=== PATIENT | male | born 1970 | race Caucasian/White ===

== ENCOUNTER → 2021-07-12 13:22 | Outpatient (BNVA) | payer OTHER, SELFPAY | PROVIDERS: PCP Internal Medicine Pulmonary Disease; Visit Provider Internal Medicine | DX: S16.1XXA Strain of muscle, fascia and tendon at neck level, initial encounter (principal); S00.81XA Abrasion of other part of head, initial encounter; W20.8XXA Other cause of strike by thrown, projected or falling object, initial encounter | CPT/HCPCS: 70450; 72040; 99203 ==

== ENCOUNTER → 2021-07-15 14:03 | Outpatient (BNVA) | payer OTHER, SELFPAY | PROVIDERS: PCP Internal Medicine Pulmonary Disease; Visit Provider Internal Medicine | DX: S16.1XXA Strain of muscle, fascia and tendon at neck level, initial encounter (principal); R42 Dizziness and giddiness; X58.XXXA Exposure to other specified factors, initial encounter | CPT/HCPCS: 99213 ==

== ENCOUNTER → 2021-07-22 15:08 | Outpatient (BNVA) | payer OTHER, SELFPAY | PROVIDERS: PCP Internal Medicine Pulmonary Disease; Visit Provider Internal Medicine | DX: S09.11XA Strain of muscle and tendon of head, initial encounter (principal); S16.1XXA Strain of muscle, fascia and tendon at neck level, initial encounter; X50.3XXA Overexertion from repetitive movements, initial encounter | CPT/HCPCS: 99213 ==

== ENCOUNTER → 2022-03-27 09:31 | Outpatient (BNVA) | payer OTHER, SELFPAY | PROVIDERS: PCP Internal Medicine Pulmonary Disease; Visit Provider Internal Medicine | DX: M25.811 Other specified joint disorders, right shoulder (principal) | CPT/HCPCS: 73030; 99203 ==

== ENCOUNTER → 2022-04-10 09:50 | Outpatient (BNVA) | payer OTHER, SELFPAY | PROVIDERS: PCP Nurse Practitioner Family; Visit Provider Physician Assistant Medical | DX: M75.42 Impingement syndrome of left shoulder (principal) | CPT/HCPCS: 99213 ==

== ENCOUNTER 2022-04-22 19:33 | Outpatient (REF) | payer OTHER, SELFPAY ==
--- NOTE | ~2022-04-22 | MR_ITS ---
EXAMINATION: MRI SHOULDER WITHOUT CONTRAST, LEFT CLINICAL INFORMATION: Left shoulder pain and limited range of motion. Injury on 03/25/2022. COMPARISON: Left shoulder radiographs dated 03/27/2022. TECHNIQUE: Multisequence MR imaging of the left shoulder was obtained without contrast on a high-field strength scanner. FINDINGS: ROTATOR CUFF: Linear fluid signal extending into the bursal surface and intrasubstance of the anterior supraspinatus tendon measuring approximately 1.6 x 0.9 cm (AP x ML). Additional linear intrasubstance fluid signal extending into the posterior tendon fibers measuring 0.9 cm in AP dimension. Mild adjacent soft tissue edema. Mild subscapularis tendinosis. No full-thickness rotator cuff tendon tear. No muscle atrophy or fatty infiltration. BICEPS: Intact. CORACOACROMIAL ARCH: The undersurface of the acromion is curved with tiny subacromial spurs. Mild acromioclavicular osteoarthritis. Fluid and edema within the subacromial-subdeltoid bursa, consistent with mild bursitis. LABRUM/CAPSULE: No displaced labral tear. Intact joint capsule. GLENOHUMERAL JOINT/MARROW: Unremarkable. MR/MR shoulder LT wo con IMPRESSION: 1. Anterior bursal surface partial tearing of the supraspinatus tendon measuring 1.6 x 0.9 cm (AP x ML) with an additional linear intrasubstance partial tearing extending into the posterior tendon fibers. Mild subscapularis tendinosis. 2. Mild acromioclavicular osteoarthritis with tiny subacromial spurs. 3. Mild subacromial-subdeltoid bursitis.
== END 2022-04-22 19:34 | disposition home or self-care (01) ==
LOC: HO.MRI 19:33
PROVIDERS: PCP Nurse Practitioner Family; Visit Provider Physician Assistant Medical
DX: M24.812 Other specific joint derangements of left shoulder, not elsewhere classified (principal)
CPT/HCPCS: 73221

== ENCOUNTER → 2022-04-28 09:42 | Outpatient (BNVA) | payer OTHER, SELFPAY | PROVIDERS: PCP Nurse Practitioner Family; Visit Provider Physician Assistant Medical | DX: M75.112 Incomplete rotator cuff tear or rupture of left shoulder, not specified as traumatic (principal) | CPT/HCPCS: 99213 ==

== ENCOUNTER 2022-05-08 13:00 | Outpatient (RCR) | payer OTHER, SELFPAY ==
--- NOTE | 2022-03-28 15:32 | MHC.PT.EP ---
[facility] [place] [facility] [place] [facility] [address] William Hilton [address] [phone] F: [phone] F: [phone] F: [phone] F: [phone] Physical Therapy Plan of Care Date of Evaluation: Date of Surgery: Diagnosis: This is a 52 yo male presenting to skilled PT with a script for L RTC injury (RHD) Assessment: This is a 52 yo male presenting to skilled PT with a script for L RTC injury. Patient was at work on Saturday 03/24 when he was lifting containers and he felt a pop. He had some pain but this increased more a little while later when he went to point at something for a co-worker. Thursday he rested and Thursday he went back into work but had pain still so he went to work connection. He had an x-ray which was negative and he was given naproxen. Pain and ROM has been improving gradually as of today. Pain is located anterior/superior and into pec muscle. Pain is sharp. Pain increases with lifting, reaching, pushing and pulling. He continues to be I with ADLs as well as driving. Denies radiating symptoms. He reports cervical pain at baseline, no increase since the incident at work. Also of note, in 2004 he had shoulder surgery, RTC repair but this was on the R. He returns to work connection on 04/10. 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 Assessment reveals pain that ranges up to a 6/10. He demos decreased B shoulder ROM (L worse in standing and sitting), decreased L shoulder and scapular strength, impaired cervical and shoulder posture at rest, impaired shoulder and thoracic joint mobility which is more hypo but less painful as well as gross functional decline with ADLs, lifting, and hobbies (enjoys hunting). He is a good candidate for skilled PT 2x/wk for 4 wks to address impairments, implement HEP and optimize functional mobility Frequency and Duration: The patient will be seen 2x/wk for 4 wk Short Term Goals: I in HEP Demo proper scapular stab and posture with ther-ex, no PT cuing Improve AROM by at least 10 degs without pain Assisted Goals: Demo normal cervical AROM without pain Improve pain to no more than 2/10 at the worst Improve SPADI by 10 points Demo at least 4+/5 scapular and shoulder strength Perform motions for hunting with a bow without increase in pain or compensation Treatment Plan: Modalities to reduce pain, spasms and effusion. Manual therapy to restore motion and function. Therapeutic exercise to improve strength and flexibility. Neuromuscular re-education for posture and balance. Therapeutic activities to return to functional activities of daily living. Electronically signed by: Merary Emanuel PT Please sign and return to therapist. Thank you for your referral.
--- NOTE | 2022-09-18 10:17 | MHC.PT.DC ---
[facility] [place] Office [place] Office [place] Office [address] William Hilton [address] [phone] F: [phone] F: [phone] F: [phone] F: [phone] Physical Therapy Discharge Report Diagnosis: This is a 52 yo male presenting to skilled PT with a script for L RTC injury (RHD) Date of Surgery: Date of Evaluation: 03/28/22 Date of Discharge: 09/18/22 Treatments to Date: 10 Cancellations to Date: 0 No Shows to Date: 0 Discharge Status: Improved Function Independent with HEP Patient Elected to Stop Recommend MD Follow-up Discharge Summary: Patient will be seeing ortho on 05/14 for evaluation, until then we continued with approved visits and discussed POC. He continues to feel like he is unable to achieve certain movements/positioning but pain varies depending on the day. I updated his HEP for RTC strengthening, he has weights and bands at home. Patient chart was DC'd after 30 days. Electronically signed by: Merary Emanuel PT Please sign and return to therapist. Thank you for your referral.
== END 2022-09-18 10:18 | disposition home or self-care (01) ==
LOC: HO.PTCHIC 13:00
PROVIDERS: PCP Nurse Practitioner Family; Visit Provider Internal Medicine
DX: S46.001D Unspecified injury of muscle(s) and tendon(s) of the rotator cuff of right shoulder, subsequent encounter (principal)
CPT/HCPCS: 97014; 97033; 97110; 97140; 97161; 97162; 97164